=== PATIENT | male | born 1940 | race Caucasian/White ===

== ENCOUNTER → 2016-09-15 | Outpatient (CLI) | payer OTHER | END | disposition home or self-care (01) | LOC: CPPFTMAIN 10:21 | PROVIDERS: ATTEND Physician Assistant Medical | DX: J44.9 Chronic obstructive pulmonary disease, unspecified (principal); G47.33 Obstructive sleep apnea (adult) (pediatric) | CPT/HCPCS: 94060; 94726; 94729 ==

== ENCOUNTER → 2016-10-22 | Outpatient (CLI) | payer MEDICARE, BC ==
[2016-10-22 09:10] LABS: CH 29.4; CHCM 33.1; HCT 47.9 % (39.0-53.0); HDW 2.78; HGB 15.5 gm/dL (13.0-17.5); MCH 28.9 pg (25.0-35.0); MCHC 32.4 g/dL (31.0-37.0); MCV 89.1 fL (80.0-100.0); RBC 5.38 m/uL (4.30-5.90); RDW 13.3 % (11.5-15.5); WBC 5.1 k/uL (3.8-10.6)
[2016-10-22 09:22] LABS: Anion Gap 14 mmol/L; Blood Urea Nitrogen 15 mg/dL (9-20); Carbon Dioxide 27 mmol/L (22-30); Chloride 102 mmol/L (98-107); Non-African American GFR(MDRD) >60 (>60 ml/min/1.73 sqM); Potassium 4.2 mmol/L (3.5-5.1); Sodium 143 mmol/L (137-145)
== END ==
LOC: LABPAT 08:44
PROVIDERS: ATTEND Internal Medicine Interventional Cardiology
DX: Z01.818 Encounter for other preprocedural examination (principal); R55 Syncope and collapse
CPT/HCPCS: 36415; 80051; 82565; 84520; 85027

== ENCOUNTER 2016-10-26 09:37 | Day surgery (SDC) | payer MEDICARE, BC ==
[2016-10-22 16:34] VITALS: BMI 27.1
[~2016-10-26 09:37] MED LIST: SODIUM CHLORIDE 0.9% 1,000 ML IV SCH; ceFAZolin 1,000 MG in SODIUM CHLORIDE 0.9% IRRIGATIO 250 ML IRRIGATION ONE; ceFAZolin 2 GM in SODIUM CHLORIDE 0.9% 100 ML IVPB ONE
[2016-10-26 10:19] LABS: Glucose,Whole Blood 128 mg/dL (75-99)
[2016-10-26] MEDS ORDERED: IODIXANOL 320 MG/ML 100 ML IV ONE (11:40)
[2016-10-26] MEDS ORDERED: MIDAZOLAM 2 MG/2 ML VIAL ONE (11:51)
[2016-10-26] MEDS: MIDAZOLAM 2 MG/2 ML VIAL IVP ONE ×3 (11:52→13:04)
[2016-10-26] MEDS: LIDOCAINE 2% INJ 20 MG/ML SQ ONE ×2 (11:58→12:09)
[2016-10-26] MEDS ORDERED: HYDROmorphone 2 MG/ML 1 ML SYRINGE ONE (13:02)
[2016-10-26] MEDS ORDERED: ACETAMINOPHEN TAB 325 MG TAB PO PRN (13:26)
--- NOTE | 2016-10-26 14:58 | XR ---
EXAMINATION TYPE: XR chest 1V portable DATE OF EXAM: 10/26/2016 2:50 PM COMPARISON: Prior chest x-ray February HISTORY: Lead placement check TECHNIQUE: Single frontal view of the chest is obtained. FINDINGS: There is been interval placement of a generator in the left pectoral region, there are delvis ds in the right atrium and ventricle. There are overlying cardiac leads. Recorder is present over the left chest. No pneumothorax or evident effusion. IMPRESSION: No evident complication status post generator placement of pacemaker leads.
[2016-10-26 16:34] VITALS: RESP 16
[2016-10-26 17:07] LABS: Glucose,Whole Blood 221 mg/dL (75-99)
[2016-10-26] MEDS: ceFAZolin 2 GM in SODIUM CHLORIDE 0.9% 100 ML IVPB SCH ×2 (17:52→23:29)
[2016-10-26 21:39] LABS: Glucose,Whole Blood 141 mg/dL (75-99)
[2016-10-27] MEDS: ceFAZolin 2 GM in SODIUM CHLORIDE 0.9% 100 ML IVPB SCH (05:12)
[2016-10-27 06:39] LABS: Glucose,Whole Blood 148 mg/dL (75-99)
--- NOTE | 2016-10-27 07:26 | XR ---
EXAMINATION TYPE: XR chest 2V DATE OF EXAM: 10/27/2016 6:24 AM COMPARISON: 10/26/2016 TECHNIQUE: PA and lateral views submitted. HISTORY: Post pacemaker insertion FINDINGS: The lungs are clear and there is no pneumothorax, pleural effusion, or focal pneumonia. Hyperinflat ion suggests COPD and there is pleural-based thickening. Double lead pacemaker appears stable in posi tion. Nodular density overlying the left lower lobe likely related to nipple shadow. IMPRESSION: 1. No acute process. See above
[2016-10-27 07:50] VITALS: BP 141/83; PULSE 72; TEMP 98.1
[2016-10-27] MEDS ORDERED: BETAMETHASONE DIPROPIONATE 0.05% OINTMENT 45 GM TUBE TOPICAL SCH (09:00)
[2016-10-27] MEDS ORDERED: ASPIRIN 81 MG CHEW PO SCH (09:00)
[2016-10-27] MEDS ORDERED: metFORMIN 500 MG TAB PO SCH (09:00)
[2016-10-27 09:43] LABS: Anion Gap 15 mmol/L; Blood Urea Nitrogen 11 mg/dL (9-20); Carbon Dioxide 24 mmol/L (22-30); Chloride 103 mmol/L (98-107); Glucose 167 mg/dL (74-99); Non-African American GFR(MDRD) >60 (>60 ml/min/1.73 sqM); Sodium 142 mmol/L (137-145)
--- NOTE | 2016-10-27 10:41 | OP ---
DATE OF SERVICE: 10/26/2016 PERFORMED BY: AMY LOVE MD PROCEDURE: Permanent dual chamber pacemaker placement. CLINICAL INFORMATION: Mr. Ahmet Holland is a 75-year-old gentleman with history of borderline hypertension, type 2 diabetes, with episodes of syncope who had a loop recorder placed a few months ago. He had documented evidence of syncope and collapse with a 5 second pause on the loop recorder. He was therefore advised to have a permanent pacemaker. It appears to be a sinus node failure on the rhythm strip without any P waves at all. Risks, benefits, and options were discussed at great length and patient was brought in for the procedure. SEDATIONS: Conscious sedation was provided for a total of one hour and 15 minutes with a combination of Versed and also Dilaudid. The patient was well sedated and his respiratory status was monitored with closely. PROCEDURE NOTE: Under local anesthesia and strict aseptic precautions, two access points were achieved into the left axillary vein under fluoroscopy guidance. A venogram was performed prior to that. A 3-1/2 inch linear incision was made about an inch medial and parallel to the left deltopectoral groove. The second access point was achieved after I made a surgical pocket. Blunt dissection was carried out with scalpel and also cautery and a pocket was made. Good hemostasis was secured. The pocket was soaked with antibiotic solution. The ventricular and atrial leads were positioned under fluoroscopic scoping guidance. Good thresholds and sensitivities were obtained. The leads were secured independently. The leads were then connected into the pulse generator. The pulse generator was then secured to the underlying muscle. The wound was closed in 2 layers. The first was a 2.0 Vicryl, which was a continuous suture with locking H suture. The second was a 4-0 Vicryl for the subcuticular sutures. Excellent hemostasis was secured. The patient tolerated the procedure well without complications. I also checked for diaphragmatic pacing for both atrial and ventricular leads. The patient was made to cough and the stability of the leads and the pulse generator were also noted on fluoroscopy. PACEMAKER DETAILS: Screed Person [employer] model Essentio Dris-1, model L101, serial number [id number]. Location is left infraclavicular region. The right ventricular lead grad intern was [employer] MRI-IS1, bipolar, model number 7741, serial number [id number], positioned in the right atrial appendage. The ventricular lead was manufactured by [employer], model Ingevity MRI-IS1, bipolar, a 59 cm lead, model number 7742, serial number [id number], placed in the right ventricular septum. The ventricular thresholds were 0.5 v at 0.5 ms, R waves were 23 mV. The right atrial threshold was 0.9 v at 0.5 ms. The P-waves were about 1.8 to 2.3 mV. Impedance in the right atrial was 587 ohms. Impedance in the right ventricular lead was 922 ohms. The pacemaker was set at a low rate of 50, high a rate of 110, with sense AV delay of 100 ms and a paced AV delay of 200 ms. Patient tolerated the procedure well without complications. He will have a chest x-ray today as well as repeat chest x-ray and a device check in the morning.
--- NOTE | 2016-10-28 12:25 | DS ---
DATE OF ADMISSION: 10/26/2016 DATE OF DISCHARGE: 10/27/2016 DIAGNOSES: 1. Sick sinus syndrome with syncope and collapse. 2. Type 2 diabetes mellitus. PROCEDURES PERFORMED: Dual chamber permanent pacemaker from left infraclavicular approach. Mr. Holland was brought in electively for a permanent pacemaker placement because of syncope and collapse and a 5 second pause documented on the loop recorder. The permanent pacemaker procedure was performed uneventfully. He tolerated the procedure well without complications. Chest x-ray post procedure and again this morning is unremarkable. He is asymptomatic. The wound is clean and dry. Blood pressure is 140/70, pulse rate is about 60 per minute. There is no JVD. S1 and S2 heard normally. Lungs are clear. Abdomen and lower extremity exam is unremarkable. Central nervous system is normal. Pacemaker site is clean and dry. The device has been checked and is functioning well. All parameters are acceptable. He will be discharged today and has been provided with a sling and not to do any activity with his left hand, especially outstretched activity, and I will see him in the office on the 11/04 for a post-pacemaker followup with a device check at 9:15 a.m. on 11/04/2016. Discharge instructions regarding activity, diet, medications were given. All his medications will be resumed.
== END 2016-10-27 10:35 | disposition home or self-care (01) ==
LOC: CATHEP 09:37 → 3OBS 13:20 → CATHEP 10-27 10:35
PROVIDERS: ATTEND Internal Medicine Interventional Cardiology
DX: I49.5 Sick sinus syndrome (principal); R55 Syncope and collapse; I47.1 Supraventricular tachycardia; I10 Essential (primary) hypertension; Z87.891 Personal history of nicotine dependence; E11.9 Type 2 diabetes mellitus without complications; Z79.84 Long term (current) use of oral hypoglycemic drugs; Z79.82 Long term (current) use of aspirin
CPT/HCPCS: 99152; 99153 ×6; 33208; 80048; 71010; 71020; C1769; C1785; C1898; J2001; J2250; Q9967; J0690 ×3

== ENCOUNTER → 2017-08-17 | Outpatient (CLI) | payer MEDICARE, BC ==
[2017-08-17 09:27] LABS: ALT 51 U/L (21-72); AST 32 U/L (17-59); Albumin 4.7 g/dL (3.5-5.0); Alkaline Phosphatase 63 U/L (38-126); Anion Gap 15 mmol/L; Blood Urea Nitrogen 19 mg/dL (9-20); Carbon Dioxide 26 mmol/L (22-30); Chloride 101 mmol/L (98-107); Cholesterol 129 mg/dL (<200); Glucose 175 mg/dL (74-99); HDL Cholesterol 43 mg/dL (40-60); LDL Cholesterol,Calculated 34 mg/dL (0-99); Potassium 4.5 mmol/L (3.5-5.1); Sodium 142 mmol/L (137-145); Total Bilirubin 0.5 mg/dL (0.2-1.3); Triglycerides 260 mg/dL (<150)
[2017-08-17 16:56] LABS: Hemoglobin A1C 7.6 % (4.0-6.0)
== END | disposition home or self-care (01) ==
LOC: LABWHC1 08:25
PROVIDERS: ATTEND Physician Assistant Medical
DX: E78.2 Mixed hyperlipidemia (principal); E11.9 Type 2 diabetes mellitus without complications
CPT/HCPCS: 36415; 80053; 80061; 83036

== ENCOUNTER → 2017-12-16 | Outpatient (CLI) | payer MEDICARE, BC ==
[2017-12-16 08:04] LABS: HCT 46.7 % (39.0-53.0); HGB 15.3 gm/dL (13.0-17.5); MCH 28.2 pg (25.0-35.0); MCHC 32.7 g/dL (31.0-37.0); MCV 86.1 fL (80.0-100.0); Mean Platelet Volume 7.9; Platelet Count 223 k/uL (150-450); RBC 5.42 m/uL (4.30-5.90); RDW 13.6 % (11.5-15.5); WBC 6.7 k/uL (3.8-10.6)
[2017-12-16 08:33] LABS: Lymphocytes # (M) 2.48 k/uL (1.0-4.8); Monocytes # (M) 0.67 k/uL (0-1.0); Neutrophils # (M) 3.35 k/uL (1.3-7.7); Neutrophils % (M) 50 %; Nucleated Red Blood Cells 0 /100 WBC (0-0); Poikilocytosis (M) Present; Total Cells Counted 100
[2017-12-16 10:01] LABS: Albumin 4.6 g/dL (3.5-5.0); Calcium 10.1 mg/dL (8.4-10.2); Potassium 4.5 mmol/L (3.5-5.1); Total Bilirubin 0.4 mg/dL (0.2-1.3); Total Protein 7.7 g/dL (6.3-8.2)
[2017-12-16 10:27] LABS: Prostate Specific Antigen 1.01 ng/mL (0.00-4.00)
[2017-12-16 20:10] LABS: Hemoglobin A1C 7.9 % (4.0-6.0)
== END | disposition home or self-care (01) ==
LOC: LABWHC1 07:13
PROVIDERS: ATTEND Physician Assistant Medical
DX: Z00.00 Encounter for general adult medical examination without abnormal findings (principal); E78.2 Mixed hyperlipidemia; E11.9 Type 2 diabetes mellitus without complications
CPT/HCPCS: 36415; 80053; 80061; 83036; 84153; 84443; 85025

== ENCOUNTER → 2018-04-16 | Outpatient (CLI) | payer MEDICARE, BC ==
[2018-04-16 08:40] LABS: HCT 45.8 % (39.0-53.0); MCH 28.5 pg (25.0-35.0); MCHC 32.7 g/dL (31.0-37.0); MCV 87.1 fL (80.0-100.0); Mean Platelet Volume 7.1; Platelet Count 212 k/uL (150-450); RBC 5.25 m/uL (4.30-5.90); RDW 13.1 % (11.5-15.5); WBC 7.4 k/uL (3.8-10.6)
[2018-04-16 08:56] LABS: Albumin 4.3 g/dL (3.5-5.0); Calcium 9.7 mg/dL (8.4-10.2); Potassium 4.5 mmol/L (3.5-5.1); Total Bilirubin 0.7 mg/dL (0.2-1.3); Total Protein 7.7 g/dL (6.3-8.2)
[2018-04-16 11:16] LABS: Prostate Specific Antigen 1.02 ng/mL (0.00-4.00)
[2018-04-16 11:37] LABS: Eosinophils # (M) 0.15 k/uL (0-0.7); Lymphocytes # (M) 2.07 k/uL (1.0-4.8); Monocytes # (M) 0.74 k/uL (0-1.0); Neutrophils # (M) 4.44 k/uL (1.3-7.7); Neutrophils % (M) 60 %; Nucleated Red Blood Cells 0 /100 WBC (0-0); Total Cells Counted 100
== END | disposition home or self-care (01) ==
LOC: LABWHC1 08:08
PROVIDERS: ATTEND Physician Assistant Medical
DX: Z00.00 Encounter for general adult medical examination without abnormal findings (principal); E78.2 Mixed hyperlipidemia; E11.40 Type 2 diabetes mellitus with diabetic neuropathy, unspecified
CPT/HCPCS: 36415; 80053; 80061; 83036; 84153; 85025

== ENCOUNTER → 2018-07-15 | Outpatient (CLI) | payer MEDICARE, BC ==
[2018-07-15 07:52] LABS: HCT 46.5 % (39.0-53.0); HGB 14.5 gm/dL (13.0-17.5); MCH 27.8 pg (25.0-35.0); MCHC 31.1 g/dL (31.0-37.0); MCV 89.4 fL (80.0-100.0); Mean Platelet Volume 7.3; Platelet Count 193 k/uL (150-450); RDW 13.7 % (11.5-15.5); WBC 6.8 k/uL (3.8-10.6)
[2018-07-15 08:25] LABS: Eosinophils # (M) 0.14 k/uL (0-0.7); Lymphocytes # (M) 1.77 k/uL (1.0-4.8); Monocytes # (M) 0.88 k/uL (0-1.0); Neutrophils # (M) 4.01 k/uL (1.3-7.7); Neutrophils % (M) 59 %; Nucleated Red Blood Cells 0 /100 WBC (0-0); Total Cells Counted 100
[2018-07-15 12:48] LABS: Albumin 4.6 g/dL (3.80-4.90); Albumin/Globulin Ratio 2.09 (1.20-2.10); Anion Gap 8.6 mmol/L (4.00-12.00); Calcium 9.6 mg/dL (8.7-10.3); Carbon Dioxide 27.4 mmol/L (21.6-31.8); Globulin 2.2 g/dL (2.1-3.7); LDL Cholesterol,Calculated 26.8 mg/dL (0.0-131.0); Total Bilirubin 0.6 mg/dL (0.3-1.2); Total Protein 6.8 g/dL (6.2-8.2); VLDL Calculation 31.2 mg/dL (5.00-40.00)
[2018-07-15 15:48] LABS: Hemoglobin A1C 7.6 % (4.0-6.0)
== END | disposition home or self-care (01) ==
LOC: LABWHC1 06:46
PROVIDERS: ATTEND Physician Assistant Medical
DX: Z00.00 Encounter for general adult medical examination without abnormal findings (principal); E78.2 Mixed hyperlipidemia
CPT/HCPCS: 36415; 80053; 80061; 82043; 82570; 83036; 84156; 84443; 85025

== ENCOUNTER → 2019-07-25 | Outpatient (CLI) | payer MEDICARE, BC ==
[2019-07-25 08:56] LABS: HCT 45.2 % (39.0-53.0); MCH 29.2 pg (25.0-35.0); MCHC 33.2 g/dL (31.0-37.0); Mean Platelet Volume 8.3; Platelet Count 189 k/uL (150-450); RBC 5.14 m/uL (4.30-5.90); RDW 13.3 % (11.5-15.5); WBC 6.6 k/uL (3.8-10.6)
[2019-07-25 17:43] LABS: African American GFR (CKD) 65.8 (60.0-200.0); Albumin 4.7 g/dL (3.80-4.90); Albumin/Globulin Ratio 2.24 (1.60-3.17); Anion Gap 12.4 mmol/L (4.00-12.00); BUN/Creat Ratio 16.67 Ratio (12.00-20.00); Calcium 9.5 mg/dL (8.7-10.3); Carbon Dioxide 24.6 mmol/L (21.6-31.8); Chol/HDL Ratio 2.71; Globulin 2.1 g/dL (1.6-3.3); LDL Cholesterol,Calculated 21.4 mg/dL (0.0-131.0); Non-African American GFR(CKD) 56.8 (60.0-200.0); Potassium 4.3 mmol/L (3.5-5.5); Total Bilirubin 0.5 mg/dL (0.3-1.2); Total Protein 6.8 g/dL (6.2-8.2); VLDL Calculation 31.6 mg/dL (5.00-40.00)
[2019-07-25 19:37] LABS: Hemoglobin A1C 6.8 % (4.0-6.0)
== END ==
LOC: LABWHC1 08:25
PROVIDERS: ATTEND Physician Assistant Medical
DX: E11.9 Type 2 diabetes mellitus without complications (principal); E78.5 Hyperlipidemia, unspecified; M51.36 Other intervertebral disc degeneration, lumbar region
CPT/HCPCS: 36415; 80053; 80061; 83036; 85027

== ENCOUNTER → 2019-08-10 | Outpatient (CLI) | payer MEDICARE, BC ==
[2019-08-10 08:08] LABS: HCT 45.6 % (39.0-53.0); HGB 15.1 gm/dL (13.0-17.5); MCHC 33.2 g/dL (31.0-37.0); MCV 87.4 fL (80.0-100.0); Mean Platelet Volume 8.2; Platelet Count 183 k/uL (150-450); RBC 5.22 m/uL (4.30-5.90); RDW 13.5 % (11.5-15.5); WBC 6.1 k/uL (3.8-10.6)
[2019-08-10 09:56] LABS: Eosinophils # (M) 0.12 k/uL (0-0.7); Lymphocytes # (M) 2.01 k/uL (1.0-4.8); Monocytes # (M) 0.49 k/uL (0-1.0); Neutrophils # (M) 3.48 k/uL (1.3-7.7); Neutrophils % (M) 57 %; Nucleated Red Blood Cells 0 /100 WBC (0-0); Total Cells Counted 100
[2019-08-10 16:54] LABS: African American GFR (CKD) 65.8 (60.0-200.0); Albumin 4.8 g/dL (3.80-4.90); Albumin/Globulin Ratio 2.18 (1.60-3.17); Anion Gap 12.1 mmol/L (4.00-12.00); BUN/Creat Ratio 16.67 Ratio (12.00-20.00); Calcium 9.6 mg/dL (8.7-10.3); Carbon Dioxide 24.9 mmol/L (21.6-31.8); Chol/HDL Ratio 3.24; Globulin 2.2 g/dL (1.6-3.3); LDL Cholesterol,Calculated 4.4 mg/dL (0.0-131.0); Non-African American GFR(CKD) 56.8 (60.0-200.0); Potassium 4.6 mmol/L (3.5-5.5); Total Bilirubin 0.4 mg/dL (0.2-1.2); VLDL Calculation 69.6 mg/dL (5.00-40.00)
== END | disposition home or self-care (01) ==
LOC: LABWHC1 07:02
PROVIDERS: ATTEND Physician Assistant Medical
DX: E11.65 Type 2 diabetes mellitus with hyperglycemia (principal); E78.5 Hyperlipidemia, unspecified; J44.9 Chronic obstructive pulmonary disease, unspecified; Z79.84 Long term (current) use of oral hypoglycemic drugs
CPT/HCPCS: 36415; 80053; 80061; 85025

== ENCOUNTER → 2020-09-12 | Outpatient (CLI) | payer MEDICARE, BC ==
--- NOTE | 2020-09-12 15:25 | XR ---
EXAMINATION TYPE: XR chest 2V DATE OF EXAM: 09/12/2020 COMPARISON: Chest x-ray dated 08/04/2017 HISTORY: R06.02, dyspnea, J 44.9 TECHNIQUE: Frontal and lateral views of the chest are obtained. FINDINGS: There is some patchy density at the left lung base not seen on prior exam. Prominent lung volumes with flattening the hemidiaphragms is again seen. Pacemaker and loop recorder are stable. The re is no pneumothorax or pleural effusion. Cardiac mediastinal silhouette is stable. IMPRESSION: Correlate for basilar atelectasis versus pneumonia. Suspect underlying COPD.
== END | disposition home or self-care (01) ==
LOC: RADXRMAIN 14:37
PROVIDERS: ATTEND Internal Medicine
DX: R06.02 Shortness of breath (principal); J44.9 Chronic obstructive pulmonary disease, unspecified
CPT/HCPCS: 71046

== ENCOUNTER 2021-03-03 04:28 | Emergency (ER) | payer MEDICARE, BC ==
[2021-03-03 04:42] VITALS: TEMP 97.3
--- NOTE | 2021-03-03 05:12 | XR ---
EXAMINATION TYPE: XR chest 1V portable DATE OF EXAM: 03/03/2021 COMPARISON: 09/12/2020 HISTORY: Syncope TECHNIQUE: FINDINGS: Heart is normal. Lungs are clear of infiltrate. There is no heart failure. There is left ax illary pacemaker. There is no pleural effusion. Bony thorax is intact. IMPRESSION: No active cardiopulmonary disease. Normal heart. There is probably COPD. No adverse lang e compared to old exam.
--- NOTE | 2021-03-03 05:43 | ED ---
Syncope HPI - General Chief Complaint: Syncope Stated Complaint: Syncope Time Seen by Provider: 03/03/21 04:51 Source: patient, EMS Mode of arrival: EMS Limitations: no limitations - History of Present Illness Initial Comments: This patient is an 80-year-old man with history of previous syncopal episodes. He is here for evaluation after having syncopal episode at home. The patient states that he was in the process of saying goodbye to a family member who was leaving to go to the airport. He had been standing and then felt like he was getting lightheaded. Patient had attempted to go sit at a table but passed out prior to getting there. He denies feeling any trauma related to the passing out episode. Note head, neck, chest, back or abdomen pain. The patient was not having chest pain, palpitations, dyspnea. MD Complaint: loss of consciousness, felt faint -: hour(s) Prodromal Symptoms: lightheaded -: second(s) Witnessed: yes - by bystander Injuries Sustained Associated with Event: None Current Symptoms: back to baseline History: previous syncopal episode - Related Data Home Medications Medication Instructions Recorded Confirmed Aspirin 81 mg PO DAILY 03/01/14 08/04/17 metFORMIN HCL [Glucophage] 1,000 mg PO BID 03/08/16 08/04/17 glipiZIDE [Glucotrol] 5 mg PO BID 03/03/21 03/03/21 Allergies Allergy/AdvReac Type Severity Reaction Status Date / Time atorvastatin Allergy Rash/Hives Verified 03/03/21 07:20 naproxen AdvReac Hallucinati Verified 03/03/21 07:20 ons Review of Systems ROS Statement: Those systems with pertinent positive or pertinent negative responses have been documented in the HPI. ROS Other: All systems not noted in ROS Statement are negative. Constitutional: Denies: fever, chills Eyes: Denies: vision change Respiratory: Denies: cough, dyspnea Cardiovascular: Reports: syncope. Denies: chest pain, palpitations, dyspnea on exertion, edema Gastrointestinal: Denies: abdominal pain, vomiting, diarrhea Genitourinary: Denies: dysuria, hematuria Musculoskeletal: Denies: back pain Skin: Denies: rash Neurological: Denies: headache, weakness, numbness Past Medical History Past Medical History: COPD, Diabetes Mellitus, Osteoarthritis (OA), Skin Disorder, Syncope Additional Past Medical History / Comment(s): HAS LOOP RECORDER, SYNCOPE. SSS. 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 LLE RASH, IMPROVED W/ RX. History of Any Multi-Drug Resistant Organisms: None Reported Past Surgical History: Appendectomy, Joint Replacement Additional Past Surgical History / Comment(s): Rt tka. EXC bilat cataracts. Colonoscopy. EXC BOIL ON BACK. Past Anesthesia/Blood Transfusion Reactions: Previous Problems w/ Anesthesia Additional Past Anesthesia/Blood Transfusion Reaction / Comment(s): Couldn't urinate for 4 days after knee replacement. NO FAMILY HX KNOWN. Past Psychological History: No Psychological Hx Reported Smoking Status: Former smoker Past Alcohol Use History: None Reported Past Drug Use History: None Reported - Past Family History Mother Family Medical History: CVA/TIA, Renal Disease Additional Family Medical History / Comment(s): pt was adopted but biological mom had dialysis and stroke as far as he knows Father Family Medical History: Myocardial Infarction ([place]) Additional Family Medical History / Comment(s): of [place] Brother(s) Family Medical History: Cancer Additional Family Medical History / Comment(s): pt was adopted but his biologic al brothers -one had ca of liver or cirrhosis and one had heart attack- had stents in-pt not quite sure about this though General Exam Limitations: no limitations General appearance: alert, in no apparent distress Head exam: Present: atraumatic, normocephalic Eye exam: Present: normal appearance. Absent: scleral icterus, conjunctival injection ENT exam: Present: normal oropharynx Neck exam: Present: normal inspection Respiratory exam: Present: normal lung sounds bilaterally. Absent: respiratory distress, wheezes, rales, rhonchi, stridor Cardiovascular Exam: Present: regular rate, normal rhythm, normal heart sounds. Absent: systolic murmur, diastolic murmur, rubs, gallop GI/Abdominal exam: Present: soft. Absent: distended, tenderness, guarding, re bound, rigid, mass Extremities exam: Present: normal inspection, normal capillary refill. Absent: pedal edema, calf tenderness Back exam: Present: normal inspection. Absent: CVA tenderness (R), CVA tenderness (L) Neurological exam: Present: alert, oriented X3, CN II-XII intact. Absent: motor sensory deficit Skin exam: Present: warm, dry, intact, normal color. Absent: rash Course Vital Signs 03/03/21 03/03/21 04:29 05:55 Temperature 97.3 F L Pulse Rate 65 65 Respiratory 16 16 Rate Blood Pressure 114/67 110/66 O2 Sat by Pulse 97 96 Oximetry EKG Findings - EKG Results: EKG: interpreted by ERMD, sinus rhythm (Rate 66 bpm), normal axis, normal ST/T - Blocks, [place], Hypertrophy, ST Abn: AV and intraventricular conduction: right bundle branch block (fixed/intermittent, complete/incomplete) (Incomplete) Medical Decision Making - Medical Decision Making This patient is an 80-year-old man who presents after syncopal episode. I discussed admission for telemetry monitoring and serial cardiac enzymes, but the patient declines stating he has had episodes like this before. Give additional history that he had been lying in bed and when the family member had gone be lieve he had been awakened this and got right up out of bed. He states that his usual routine is to sit up at the bedside for a few minutes, and he had not done this. Patient does agree to return if he develops any symptoms. We discussed appropriate further care and follow-up as well as return parameters. - Lab Data Result diagrams: 03/03/21 04:59 03/03/21 04:59 Lab Results 03/03/21 03/03/21 03/03/21 Range/Units 04:59 04:59 04:59 WBC 6.3 (3.8-10.6) k/uL RBC 4.46 (4.30-5.90) m/uL Hgb 12.8 L (13.0-17.5) gm/dL Hct 39.0 (39.0-53.0) % MCV 87.4 (80.0-100.0) fL MCH 28.8 (25.0-35.0) pg MCHC 33.0 (31.0-37.0) g/dL RDW 13.3 (11.5-15.5) % Plt Count 183 (150-450) k/uL MPV 8.4 Neutrophils % (Manual) 70 % Band Neuts % (Manual) 2 % Lymphocytes % (Manual) 20 % Monocytes % (Manual) 5 % Eosinophils % (Manual) 3 % Neutrophils # (Manual) 4.50 (1.3-7.7) k/uL Lymphocytes # (Manual) 1.26 (1.0-4.8) k/uL Monocytes # (Manual) 0.32 (0-1.0) k/uL Eosinophils # (Manual) 0.19 (0-0.7) k/uL Nucleated RBCs 0 (0-0) /100 WBC Manual Slide Review Performed PT 10.0 (9.0-12.0) sec INR 0.9 (<1.2) APTT 21.8 L (22.0-30.0) sec Sodium 138 (137-145) mmol/L Potassium 4.3 (3.5-5.1) mmol/L Chloride 104 (98-107) mmol/L Carbon Dioxide 22 (22-30) mmol/L Anion Gap 12 mmol/L BUN 19 (9-20) mg/dL Creatinine 0.95 (0.66-1.25) mg/dL Est GFR (CKD-EPI)AfAm 86 (>60 ml/min/1.73 sqM) Est GFR (CKD-EPI)NonAf 75 (>60 ml/min/1.73 sqM) Glucose 187 H (74-99) mg/dL Calcium 9.3 (8.4-10.2) mg/dL Total Bilirubin 0.4 (0.2-1.3) mg/dL AST 21 (17-59) U/L ALT 14 (4-49) U/L Alkaline Phosphatase 48 (38-126) U/L Troponin I (0.000-0.034) ng/mL Total Protein 6.8 (6.3-8.2) g/dL Albumin 4.0 (3.5-5.0) g/dL 03/03/21 Range/Units 04:59 WBC (3.8-10.6) k/uL RBC (4.30-5.90) m/uL Hgb (13.0-17.5) gm/dL Hct (39.0-53.0) % MCV (80.0-100.0) fL MCH (25.0-35.0) pg MCHC (31.0-37.0) g/dL RDW (11.5-15.5) % Plt Count (150-450) k/uL MPV Neutrophils % (Manual) % Band Neuts % (Manual) % Lymphocytes % (Manual) % Monocytes % (Manual) % Eosinophils % (Manual) % Neutrophils # (Manual) (1.3-7.7) k/uL Lymphocytes # (Manual) (1.0-4.8) k/uL Monocytes # (Manual) (0-1.0) k/uL Eosinophils # (Manual) (0-0.7) k/uL Nucleated RBCs (0-0) /100 WBC Manual Slide Review PT (9.0-12.0) sec INR (<1.2) APTT (22.0-30.0) sec Sodium (137-145) mmol/L Potassium (3.5-5.1) mmol/L Chloride (98-107) mmol/L Carbon Dioxide (22-30) mmol/L Anion Gap mmol/L BUN (9-20) mg/dL Creatinine (0.66-1.25) mg/dL Est GFR (CKD-EPI)AfAm (>60 ml/min/1.73 sqM) Est GFR (CKD-EPI)NonAf (>60 ml/min/1.73 sqM) Glucose (74-99) mg/dL Calcium (8.4-10.2) mg/dL Total Bilirubin (0.2-1.3) mg/dL AST (17-59) U/L ALT (4-49) U/L Alkaline Phosphatase (38-126) U/L Troponin I <0.012 (0.000-0.034) ng/mL Total Protein (6.3-8.2) g/dL Albumin (3.5-5.0) g/dL Disposition Clinical Impression: Syncope Disposition: HOME SELF-CARE Condition: Good Instructions (If sedation given, give patient instructions): Syncope (ED) Is patient prescribed a controlled substance at d/c from ED?: No Referrals: [facility],Clinic [Primary Care Provider] - 1-2 days
[2021-03-03 05:52] LABS: INR 0.9 (<1.2)
[2021-03-03 05:53] LABS: HGB 12.8 gm/dL (13.0-17.5); MCH 28.8 pg (25.0-35.0); MCV 87.4 fL (80.0-100.0); Mean Platelet Volume 8.4; Platelet Count 183 k/uL (150-450); RBC 4.46 m/uL (4.30-5.90); RDW 13.3 % (11.5-15.5); WBC 6.3 k/uL (3.8-10.6)
[2021-03-03 06:05] LABS: Calcium 9.3 mg/dL (8.4-10.2); Potassium 4.3 mmol/L (3.5-5.1); Total Bilirubin 0.4 mg/dL (0.2-1.3); Total Protein 6.8 g/dL (6.3-8.2)
[2021-03-03 06:17] LABS: Band Neutrophils % 2 %; Eosinophils # (M) 0.19 k/uL (0-0.7); Lymphocytes # (M) 1.26 k/uL (1.0-4.8); Monocytes # (M) 0.32 k/uL (0-1.0); Neutrophils % (M) 70 %; Nucleated Red Blood Cells 0 /100 WBC (0-0); Total Cells Counted 100
[2021-03-03 06:23] LABS: Partial Thromboplastin Time 21.8 sec (22.0-30.0)
[2021-03-03 07:37] VITALS: BP 118/67; PULSE 70; RESP 18
== END 2021-03-03 07:36 | disposition home or self-care (01) ==
LOC: EC 04:28
DX: R55 Syncope and collapse (principal); E11.9 Type 2 diabetes mellitus without complications; J44.9 Chronic obstructive pulmonary disease, unspecified; M19.90 Unspecified osteoarthritis, unspecified site; Z87.891 Personal history of nicotine dependence; Z88.6 Allergy status to analgesic agent; Z88.8 Allergy status to other drugs, medicaments and biological substances; Z79.82 Long term (current) use of aspirin; Z79.84 Long term (current) use of oral hypoglycemic drugs
CPT/HCPCS: 36415; 71045; 80053; 84484; 85025; 85610; 85730; 93005; 99284

== ENCOUNTER → 2021-04-23 | Outpatient (CLI) | payer MEDICARE, BC ==
--- NOTE | 2021-04-23 08:50 | CT ---
EXAMINATION TYPE: CT brain wo con DATE OF EXAM: 04/23/2021 HISTORY: Near syncope CT DLP: 1030.6 mGycm. Automated Exposure Control for Dose Reduction was Utilized. TECHNIQUE: CT scan of the head is performed without contrast. COMPARISON: CT brain August 13, 2015. FINDINGS: There is no acute intracranial hemorrhage or midline shift identified. There is mild to m oderate diffuse ventricular and sulcal prominence consistent with diffuse age-related cerebral atroph y. There moderate to advanced is low-attenuation in the periventricular white matter consistent with chronic small vessel ischemic change. No suspicious opacification of the mastoid air cells. Nasal s eptum remains deviated to right of midline. Mild mucosal thickening inferior left sphenoid sinus and throughout the ethmoid sinuses bilaterally along with inferior frontal sinuses. The globes are intact bilaterally. IMPRESSION: No acute intracranial hemorrhage or midline shift. There is mild to moderate diffuse ce rebral atrophy and moderate to advanced chronic small vessel ischemic change with some interval degen erative progression from 2016 CT. New Mild chronic paranasal sinus disease noted.
== END | disposition home or self-care (01) ==
LOC: RADCTMAIN 08:12
PROVIDERS: ATTEND Psychiatry & Neurology Neurology
DX: R55 Syncope and collapse (principal)
CPT/HCPCS: 70450

== ENCOUNTER → 2021-10-22 | Outpatient (CLI) | payer MEDICARE, BC ==
[2021-10-23 00:20] LABS: African American GFR (CKD) 72.1 (60.0-200.0); Anion Gap 16.7 mmol/L (10.00-18.00); BUN/Creat Ratio 13.73 Ratio (12.00-20.00); Blood Urea Nitrogen 15.1 mg/dL (9.0-27.0); Calcium 9.7 mg/dL (8.7-10.3); Carbon Dioxide 23.3 mmol/L (20.0-27.5); Non-African American GFR(CKD) 62.2 (60.0-200.0); Potassium 3.9 mmol/L (3.5-5.5)
== END | disposition home or self-care (01) ==
LOC: LABWHC1 14:32
PROVIDERS: ATTEND Internal Medicine Interventional Cardiology
DX: I10 Essential (primary) hypertension (principal); E11.9 Type 2 diabetes mellitus without complications
CPT/HCPCS: 36415; 80048